=== PATIENT | female | born 1960 | race Caucasian/White ===

== ENCOUNTER → 2025-04-06 | Outpatient (CLI) | payer MEDICARE, OTHER ==
[2025-04-06 15:32] VITALS: BP 133/77; PULSE 86; RESP 16; TEMP 98.4
--- NOTE | 2025-04-06 16:04 | P.SLEEP ---
History of Present Illness DATE: 04/06/2025 CONSULTATION/NEW PATIENT EVALUATION HISTORY OF PRESENT ILLNESS/SLEEP-WAKE EVALUATION: 65-year-old lady had been e valuated in the sleep center for possible obstructive sleep apnea hypopnea syndrome. SLEEP SCHEDULE: Usually sleep schedule from midnight until 8:30 AM. FALLING ASLEEP: Sometimes patient has difficulties with falling asleep. DURING SLEEP: Patient sleeps on the back and side position with loud snoring and witnessed episodes of stop breathing during the sleep by her family. Patient wakes up from sleep with nocturia. Positive history of grinding teeth. No history of hypnogogical hallucinations, sleep paralysis, or cataplexy. DURING THE DAY/WAKE STATE: In the morning patient wake up tired, falling asleep during the day, has episodes of irritability. [place] sleepiness scale is significantly increased to 15. Patient takes 1 nap around 35 PM. PAST MEDICAL HISTORY: Asthma, tinnitus. PAST SURGICAL HISTORY: Sinus surgery, ear surgery, cholecystectomy, left ankle surgery. MEDICATIONS: Please see below. SOCIAL HISTORY: Please see below. FAMILY HISTORY: Please see below. REVIEW OF SYSTEMS: Loud snoring, awakenings from sleep, sleepiness during the day. No fevers. No double vision. No recent chest pain. No shortness of breath. No abdominal pain. No bleeding episodes. No blood in urine. No seizure episodes. PHYSICAL EXAMINATION: GENERAL: A pleasant patient without any distress. VITAL SIGNS: Please see below, weight 162 pounds, BMI 32.1. HEENT: PERRLA, EOMI. Evaluation of oropharynx showed tongue protrudes midline, low position of soft palate Mallampati 4. NECK: Supple. No JVD. Thyroid is not palpable. 15.5 inches in circumference. LUNGS: Clear to percussion and to auscultation. Good air exchange. No wheezing or rhonchi. HEART: S1, S2 regular. No murmurs, gallops or rubs. ABDOMEN: Soft and nontender. Bowel sounds are present. No organomegaly appreciated. EXTREMITIES: No clubbing or cyanosis. OFFICE HELPER: Awake, alert, and oriented x3. Cranial nerves 2 to 7 intact. There is no fasciculation or atrophy noted. No focal deficits observed. ASSESSMENT: 1. Loud snoring, witnessed episodes of stop breathing during the sleep, extremely low position of soft palate Mallampati 4, sleepiness with [place] Sleepiness Scale increased to 15 for apnea hypopnea syndrome. 2. Mild obesity, BMI 32.1. 3. Asthma. 4. Tinnitus. 5 status post sinus surgery. 6 . Status post ear surgery. 7. Status post cholecystectomy. 8. Status post left ankle surgery. 9 . Status post carpal tunnels syndrome surgery. PLAN: 1. Polysomnography for evaluation of patient's breathing during sleep. 2. Following plan after reading sleep study. 3. Preferable position during sleep on the side. 4. No driving if patient feels any sleepiness. Patient is aware of civil and criminal liability for unsafe driving. 5. Sleep hygiene with regular sleep time for at least 7.5-8 hours. 6. Watching and losing weight. Thank you very much for referring this patient for consultation. Sincerely, Jamil Tang MD, PhD, FAASM. Diplomat of [place] [employer], Sleep Medicine Board by [employer] [employer] [employer] Certified Medical Records Coder of [facility] [place] cc: Brien Robledo MD Past Medical History Past Medical History: Asthma Additional Past Medical History / Comment(s): tinitis History of Any Multi-Drug Resistant Organisms: None Reported Past Surgical History: Section, Cholecystectomy, Ear Surgery, Joint Replacement Additional Past Surgical History / Comment(s): sinus/ear Past Anesthesia/Blood Transfusion Reactions: No Reported Reaction Past Psychological History: Anxiety Additional Psychological History / Comment(s): tinitis Smoking Status: Current every day smoker Past Alcohol Use History: Rare Past Drug Use History: Marijuana Additional Drug Use History / Comment(s): gummies - Past Family History Father Family Medical History: Asthma, Coronary Artery Disease (CAD), CVA/TIA, Hyperlipidemia, Hypertension, Sleep Apnea/CPAP/BIPAP Mother Family Medical History: Coronary Artery Disease (CAD), Diabetes Mellitus Medications and Allergies Home Medications Medication Instructions Recorded Confirmed Type ALPRAZolam [Xanax] 0.25 mg PO DIRECTED PRN 04/06/25 04/06/25 History Budesonide-Formot 160-4.5 Mcg See Rx Instructions .ROUTE .COMPLEX 04/06/25 04/06/25 History [Symbicort 160-4.5 Mcg Inhaler] Cetirizine HCl 10 mg PO DIRECTED PRN 04/06/25 04/06/25 History Montelukast [Singulair] 10 mg PO DAILY 04/06/25 04/06/25 History Triamcinolone Acetonide [Nasacort] See Rx Instructions .ROUTE .COMPLEX 04/06/25 04/06/25 History Physical Exam Vitals: Vital Signs Temp Pulse Resp BP Pulse Ox 04/06/25 15:31 98.4 F 86 16 133/77 97 Intake and Output 04/06/25 04/06/25 04/06/25 06:59 14:59 22:59 Other: Weight 73.482 kg Sleep Note - Sleep Data ESS Total: 15 - Sleep Note Sleep Note: Temperature: 98.4 F Pulse Rate: 86 Respiratory Rate: 16 Blood Pressure: 133/77 SpO2: 97 Height: 4 ft 11.5 in Weight: 73.482 kg BMI: Neck Circumference: 15.5
== END ==
LOC: 3 N SLEEP 15:06
PROVIDERS: ATTEND Internal Medicine
DX: R06.83 Snoring (principal); E66.9 Obesity, unspecified; J45.909 Unspecified asthma, uncomplicated; H93.19 Tinnitus, unspecified ear; Z90.49 Acquired absence of other specified parts of digestive tract; Z98.890 Other specified postprocedural states; Z68.32 Body mass index [BMI] 32.0-32.9, adult
CPT/HCPCS: 99211

== ENCOUNTER 2025-05-13 19:54 | Outpatient (CLI) | payer MEDICARE, OTHER ==
--- NOTE | 2025-05-20 19:42 | P.PCN ---
Description of Procedure: POLYSOMNOGRAPHY REPORT PROCEDURE(S)/DATE(S): Polysomnography 05/13/2025 CLINICAL: Patient has been seen in the sleep center for evaluation of obstructive sleep apnea-hypopnea syndrome. Please see my consultation. Sleep study has been done for evaluation of patient breathing during the sleep. PROCEDURE: The standard montage for clinical polysomnography included the electroencephalogram, the electrooculogram, the mentalis surface electromyography and Lead II cardiography. The respiratory battery consisted of measurements of nasal/buccal air flow, pressure transducer measurements from nose, thoracic and/or abdominal effort and intercostal surface electromyography. Video monitoring has been done to check for any parasomnia events. Nocturnal oxyhemoglobin saturations were obtained by finger oximetry. Step-worthy titration with positive airway pressure was utilized to control the respiratory events, if necessary. RESULTS: During the diagnostic sleep study sleep efficiency was normal 94.2%. Latency to sleep onset was normal at 12.0 min. Sleep architecture showed stage NI was normal 6.5%, Delta sleep was extremely short 0.9%, REM sleep was short 5.7%. Respiratory channel showed 0 obstructive apneas, 0 mixed apneas, 0 central apneas, 44 hypopneas with lowest oxygen level 71%. Total apnea hypopnea index was 7.6. Heart rate was in the range between 63 and 73, average 67. EMG showed 0.5 periodic limb movements per hour. IMPRESSIONS: 1. Obstructive sleep apnea hypopnea syndrome in mild range. Significant sleepiness with [place] Sleepiness Scale 15. 2. No significant periodic limb movements have been documented. Please see other impressions from consultation PLAN: 1. The patient will have AutoPAP treatment for correction of respiratory abnormalities during the sleep. 2. Losing weight. 3. Sleep hygiene with regular time in bed for at least 7-1/2 hours. 4. No driving if feeling sleepiness. 5. I will see patient for follow-up visit to evaluate clinical response on treatment, compliance with treatment and [place] adjustments related to mask fitting pressure and humidification. If patient will continue to have symptoms of significant excessive daytime sleepiness we may consider multiple sleep latency test. Thank you very much for allowing me to participate in the management of your patient. Sincerely, Jamil Tang MD, PhD, FAASM. Diplomat of [place] [employer], Sleep Medicine Board by [place] [employer] Desulfurizer Operator of [facility] [place] cc: Brien Robledo MD
== END 2025-05-14 05:35 | disposition home or self-care (01) ==
LOC: 3 N SLEEP 19:54
PROVIDERS: ATTEND Internal Medicine
DX: G47.33 Obstructive sleep apnea (adult) (pediatric) (principal)
CPT/HCPCS: 95810